=== PATIENT | male | born 1985 | race Caucasian/White ===

== ENCOUNTER 2016-09-07 20:36 | Emergency (ER) | payer OTHER ==
[2016-09-07 20:41] VITALS: BP 145/90
[2016-09-07] MEDS ORDERED: HYDROcodone/ACETAMIN 5-325 MG* 1 TAB PO ONE ×3 (22:03→23:04)
--- NOTE | 2016-09-07 22:33 | RAD ---
HISTORY: Blunt trauma to nose COMPARISONS: None VIEWS: 3, [place] views of the face, bilateral coned down lateral views of the nasal bones FINDINGS: BONE DENSITY: Normal. BONES: There is a transverse, minimally displaced fracture involving the nasal bones bilaterally. JOINTS: There is no arthropathy. ALIGNMENT: There is no dislocation. SOFT TISSUES: Unremarkable. OTHER FINDINGS: None. IMPRESSION: TRANSVERSE MINIMALLY DISPLACED FRACTURE OF THE NASAL BONES BILATERALLY
[2016-09-07] MEDS ORDERED: Amoxicillin/Clavulanate TAB* 875 MG PO ONE (23:04)
--- NOTE | 2016-09-08 07:02 | ED ---
Head Injury - HPI Summary HPI Summary: Patient presents to ED after sustaining an injury to the nose after a lacrosse puck hit his nose approx 2 hours ago. There was medical onsite who placed 2 nasal tampons in the nose d/t moderate bleeding. He sustained a small avulsion to the skin over the right side of his nose and nose has obvious deformity. Denies LOC, memory loss, confusion or AHMADI. States pain is 6/10 and located only atop his nose. Takes no blood thinners and otherwise healthy. Denies neck pain. - History Of Current Complaint Chief Complaint: EDFacialInjury Stated Complaint: FACIAL INJURY,NOSE BLEED Time Seen by Provider: 09/07/16 21:23 Hx Obtained From: Patient Mechanism Of Injury: Direct Blow Onset/Duration: Started Hours Ago Onset of Pain: Immediate Severity Currently: Moderate Severity Initially: Moderate Pain Intensity: 5 Pain Scale Used: 0-10 Numeric Location: Discrete At: - nose Associated Signs And Symptoms: Epistaxis - Risk Factors SDH Risk Factor: Male - Allergies/Home Medications Allergies/Adverse Reactions: Allergies Allergy/AdvReac Type Severity Reaction Status Date / Time No Known Allergies Allergy Verified 09/07/16 23:09 PMH/Surg Hx/FS Hx/Imm Hx Previously Healthy: Yes Infectious Disease History: No Infectious Disease History: Denies: Traveled Outside the [place] in Last 30 Days - Social History Occupation: Employed Full-time Lives: With Family Alcohol Use: Rare Hx Substance Use: No Substance Use Type: Reports: None Hx Tobacco Use: No Smoking Status (MU): Never Smoked Tobacco Do You Chew or Dip Tobacco: No Review of Systems Constitutional: Negative Positive: Epistaxis, Other - nasal pain Cardiovascular: Negative Respiratory: Negative Positive: no symptoms reported, see HPI Musculoskeletal: Negative Skin: Negative Neurological: Negative Psychological: Normal All Other Systems Reviewed And Are Negative: Yes Physical Exam Triage Information Reviewed: Yes Vital Signs On Initial Exam: Initial Vitals Temp Pulse Resp BP Pulse Ox 98.1 F 88 15 145/90 99 09/07/16 20:39 09/07/16 20:39 09/07/16 20:39 09/07/16 20:39 09/07/16 20:39 Vital Signs Reviewed: Yes Appearance: Positive: Well-Appearing, Well-Nourished, Pain Distress, Signs of Trauma Skin: Positive: Warm, Skin Color Reflects Adequate Perfusion, Other - small avulsion to skin measuring .3cm on right side of nose over bridge. obvious deformity Eyes: Positive: Normal, FLOR Neck: Positive: Supple, No Lymphadenopathy Respiratory/Lung Sounds: Positive: Clear to Auscultation, Breath Sounds Present Cardiovascular: Positive: Normal Musculoskeletal: Positive: Normal, Strength/ROM Intact Neurological: Positive: Normal, Sensory/Motor Intact, Speech Normal Psychiatric: Positive: Normal Diagnostics - Vital Signs Vital Signs Temp Pulse Resp BP Pulse Ox 09/07/16 20:39 98.1 F 88 15 145/90 99 - Laboratory Lab Statement: Any lab studies that have been ordered have been reviewed, and results considered in the medical decision making process. Head Injury Course/Dx Course Of Treatment: Patient sent to xray showing: IMPRESSION: TRANSVERSE MINIMALLY DISPLACED FRACTURE OF THE NASAL BONES BILATERALLY. Tampons removed and bleedig stopped. Avulsion over nose superficial and requires bandaid. Prophylactic abx of augmentin rx for patient. Pain medication given. Patient in no acute distress and OK with discharge plan. - Diagnoses Differential Diagnosis/HQI/PQRI: Contusion, Laceration, Nasal Fracture, Orbital Fracture Provider Diagnoses: Nasal bone fracture Discharge - Discharge Plan Condition: Stable Disposition: HOME Prescriptions: Amoxicillin/Clavulanate TAB* [Augmentin TAB 875*] 875 mg PO BID #14 tab HYDROcodone/ACETAMIN 5-325 MG* [[place] 5-325 TAB*] 1 tab PO Q6H PRN #12 tab MDD 4 PRN Reason: Pain Patient Education Materials: Nasal Fracture (ED) Referrals: Non Staff,Doctor [Primary Care Provider] - Additional Instructions: Follow up with ENT when you get home. If you develops symptoms where you are unable to breath well out of your nose, come back to ED. Take Ibuprofen 600mg three times daily for discomfort, regardless if you take the pain medication. For breakthrough pain, take the hydrocodone.
== END 2016-09-07 23:16 | disposition home or self-care (01) ==
LOC: ED 20:36
DX: S02.2XXA Fracture of nasal bones, initial encounter for closed fracture (principal); R04.0 Epistaxis; W21.89XA Striking against or struck by other sports equipment, initial encounter; Y93.65 Activity, lacrosse and field hockey; Y92.89 Other specified places as the place of occurrence of the external cause
CPT/HCPCS: 70160; 99282; A9270-GY